=== PATIENT | male | born 1970 | race Caucasian/White ===

== ENCOUNTER 2022-12-01 10:49 | Emergency (ER) | payer SELFPAY ==
[~2022-12-01] VITALS: Ht 152.4 cm; Wt 98.4 kg
[~2022-12-01 10:49] MED LIST: AMOX500C2 PO; ASPI-892 PO; CYCL10TA9 PO; HSCO125 SL; HYDR-34 PO; HYDR-707 PO; LISI1TAB; MECL-124 PO; METH4TAB PO; NAPR-243 PO; NF-ESOM40C PO; NYST1000 PO; ONDA-42 SL; RNT150T PO; SCOP1PAT TD; TRZ50T PO
--- NOTE | 2022-12-01 11:07 | ED Upper Extremity ---
General Stated Complaint: INJ LEFT PALM Source: patient Exam Limitations: no limitations History of Present Illness Date Seen by Provider: Dec 01, 2022 Time Seen by Provider: 11:05 Initial Comments Patient is a 52-year-old male who presents ED with a laceration to his left palm. 30 minutes ago patient was working on a fan. Patient was using a knife to cut some plastic when it slipped resulting in a laceration to his left palm. Patient reports large amount of bleeding. Controlled with direct pressure. Normal range of motion of his digits. Not up-to-date on his tetanus. Reports some numbness and tingling into his left little finger. Patient denies wrist pain, blood thinners, nausea and vomiting, diarrhea fever, chills Allergies and Home Medications Allergies Coded Allergies: Codeine (Unverified Allergy, NAUSEA, 07/07/10) Patient Home Medication List Home Medication List Reviewed: Yes Amoxicillin (Amoxicillin) 500 Mg Capsule, 2 EACH PO DAILY Prescribed by: WON MORFIN on 03/09/14 2200 Aspirin (Low Dose Aspirin) 81 Mg Tablet.dr, 81 MG PO DAILY, (Reported) Entered as Reported by: CHERYLE ALBRIGHT on 07/12/09 1006 Esomeprazole Mag Trihydrate (Nexium) 40 Mg Capsule.dr, 40 MG PO BID, (Reported) Entered as Reported by: CHERYLE ALBRIGHT on 07/12/09 1006 Hydrocodone Bit/Acetaminophen (Lortab 5-500 Tablet) 1 Each Tablet, 1-2 EACH PO HS Prescribed by: GILBERT BACH on 01/01/13 1343 Hyoscyamine Sulfate (Levsin Sl) 0.125 Mg Tab, 0.125 MG SL Q4H Prescribed by: WON MORFIN on 12/28/12 0209 Lisinopril/Hydrochlorothiazide (Lisinopril-Hctz 20/12.5 Tab) 1 Each Tablet, (Reported) Entered as Reported by: PLACIDO KABA on 07/07/10 0612 Meclizine Hcl (Antivert) 25 Mg Tab, 1-2 TAB PO Q 4-6 HOURS PRN for DIZZINESS Prescribed by: MANUELA LANGSTON on 09/11/14 0120 Nystatin (Nystatin Oral Suspension) 60 Ml Btl, 5 ML PO QID Prescribed by: TEODORA BALDERAS on 03/13/14 0014 Ondansetron Hcl (Zofran Oral Dissolve) 4 Mg Tab, 4 MG SL Q4H Prescribed by: MANUELA LANGSTON on 09/11/14 012 Ranitidine Hcl (Zantac 150 Mg) 150 Mg Tablet, 1 TAB PO BID, (Reported) Entered as Reported by: PATRICIA DIALLO on 12/28/12 0051 Scopolamine Hcl (Transderm-Scop) 1 Patch .72 H Patch.td72, 1 EA TD Q3D Prescribed by: MANUELA LANGSTON on 09/11/14 012 Trazodone Hcl (Desyrel 50 Mg) 50 Mg Tab, 50 MG PO HS, (Reported) Entered as Reported by: CHERYLE ALBRIGHT on 07/12/09 1006 Review of Systems Constitutional: No chills, No diaphoresis, No fever, No malaise, No weakness EENTM: No ear pain, No blurred vision, No double vision Respiratory: No cough, No dyspnea on exertion Cardiovascular: No chest pain Gastrointestinal: No abdominal pain, No diarrhea Genitourinary: No decreased output, No discharge Musculoskeletal: No back pain, No joint pain, No joint swelling, No muscle pain, No muscle stiffness Skin: change in color All Other Systems Reviewed Negative Unless Noted: Yes Past Yvdqhra-Xdalhb-Gljrct Hx Seasonal Allergies Seasonal Allergies: No Past Medical History Abdominal, Tonsillectomy Chronic Edema/Swelling, Hypertension Reproductive Disorders: No Sexually Transmitted Disease: No Kidney Stones Abdominal Hernia, Gastroesophageal Reflux Physical Exam Vital Signs Vital Signs - First Documented 12/01/22 10:57 Temp 36.7 Pulse 104 Resp 20 B/P (MAP) 149/87 (107) O2 Delivery Room Air Capillary Refill : Height, Weight, BMI Height: 5'5" Weight: 181lbs. oz. 82.605101mx; BMI Method:Stated General Appearance: WD/WN, no apparent distress HEENT: PERRL/EOMI, normal ENT inspection, TMs normal, pharynx normal Neck: non-tender, full range of motion, supple, normal inspection Cardiovascular: regular rate, rhythm, no edema, no gallop, no JVD Respiratory: chest non-tender, lungs clear, normal breath sounds, no respiratory distress, no accessory muscle use Gastrointestinal: normal bowel sounds, non tender, soft, no organomegaly Back: normal inspection, no CVA tenderness Elbow/Forearm: normal inspection, non-tender, no evidence of injury Wrist: Yes normal inspection, Yes non-tender, Yes no evidence of injury Hand: laceration (4 cm laceration to left palmar hand. Normal active range of motion the digits. 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 Adipose involvement. No tendon vomit. Mild bleeding.) Procedures/Interventions Wound Location: Upper Extremities Other Wound Location left hand Wound Length (cm): 4 Wound's Depth, Shape: superficial, sub Q Wound Explored: clean Irrigated w/ Saline (ccs): 300 Betadine Prep?: Yes Anesthesia: 1% Lidocaine Volume Anesthetic (ccs): 8 Wound Debrided: minimal Suture: Ethlion Suture Size: 3-0 Number of Sutures: 13 Layer Closure?: 1 Progress/Results/Core Measures Results/Orders My Orders Orders - SHARON WILLIS Lidocaine 1% Inj 20 Ml (Xylocaine 1% Inj (12/01/22 11:15) Dipht,Pertuss(Acell),Tet Adult (Boostrix (12/01/22 11:15) Medications Given in ED Current Medications Medications Dose Ordered Sig/Hugo Route Start Time Stop Time Status Last Admin Dose Admin Diphtheria/ Tetanus/Acell Pertussis 0.5 ml ONCE ONCE IM 12/01/22 11:15 12/01/22 11:16 DC 12/01/22 11:30 0.5 ML Lidocaine HCl 20 ml ONCE ONCE INJ 12/01/22 11:15 12/01/22 11:16 DC 12/01/22 11:07 20 ML Vital Signs/I&O 12/01/22 10:57 Temp 36.7 Pulse 104 Resp 20 B/P (MAP) 149/87 (107) O2 Delivery Room Air Departure Communication (PCP) Reviewed previous ER visits, H&P, lab testing. Denies diabetes or blood thinners. Differential diagnoses hand laceration, muscular or tendon laceration. Patient with a 4 cm laceration to the left later palm. Normal active range of motion of the digits. Adipose involvement no evidence of tendon or muscular involvement. Extensive irrigation. Placed 13 Ethilon 3-0 sutures to the left hand. patient tolerated procedure well. Remove in 10 to 12 days. Discussed wound care. Keep the hand bandage in a Lele wrap. Provided hand surgery follow-up for further evaluation in the next 1 week. Avoid movement to allow healing and to prevent the sutures from rupturing. if increased redness or swelling to return back to ED. patient does not need antibiotics prophylactically. Updated his tetanus. Impression Primary Impression: Hand laceration Disposition: HOME, SELF-CARE Condition: Stable Departure-Patient Inst. Decision time for Depature: 12:05 Referrals: [facility] (PCP/Family) Primary Care Physician Patient Instructions: Laceration Repair With Stitches ED Add. Discharge Instructions: Recommend following up [place] [phone]. Keep the area covered with gauze and Lele wrap. Remove sutures in 10 to 12 days. Avoid excessive movement of the left hand SHARON WILLIS Dec 01, 2022 11:07
[2022-12-01] MEDS ORDERED: TETANUS,DIPTH,PERTUSS P/F (BOOSTRIX) 0.5 ML VIAL IM ONE (11:15)
[2022-12-01] MEDS ORDERED: LIDOCAINE 1% INJ 20 ML VIAL INJ ONE (11:15)
[2022-12-01 12:13] VITALS: BP 139/86
== END 2022-12-01 12:13 | disposition home or self-care (01) ==
LOC: EDUNIT# 10:49 → ER 10:52
DX: S61.412A Laceration without foreign body of left hand, initial encounter (principal); Z23 Encounter for immunization; Z28.310 Unvaccinated for COVID-19; W26.0XXA Contact with knife, initial encounter
CPT/HCPCS: 90715; 99284

== ENCOUNTER 2022-12-13 06:37 | Emergency (ER) | payer SELFPAY ==
[2022-12-13 06:56] VITALS: BP 145/95
--- NOTE | 2022-12-13 06:59 | ED Integumentary General ---
General Chief Complaint: Skin/Wound Problems Stated Complaint: STITCHES REMOVED Source: patient Exam Limitations: no limitations History of Present Illness Date Seen by Provider: Dec 13, 2022 Time Seen by Provider: 06:48 Initial Comments 52-year-old male presents for left hand suture removal. Sutures placed on the second of this month. He had a small area opened up to the medial aspect of the wound. No drainage. No fevers or chills. No redness. All other systems reviewed and negative except documented per HPI. Voice recognition software was used to help create this chart Allergies and Home Medications Allergies Coded Allergies: codeine (Unverified Allergy, Unknown, NAUSEA, 12/01/22) Patient Home Medication List Home Medication List Reviewed: Yes Amoxicillin (Amoxicillin) 500 Mg Capsule, 2 EACH PO DAILY Prescribed by: WON MORFIN on 03/09/14 2200 Aspirin (Low Dose Aspirin) 81 Mg Tablet.dr, 81 MG PO DAILY, (Reported) Entered as Reported by: CHERYLE ALBRIGHT on 07/12/09 1006 Esomeprazole Mag Trihydrate (Nexium) 40 Mg Capsule.dr, 40 MG PO BID, (Reported) Entered as Reported by: CHERYLE ALBRIGHT on 07/12/09 1006 Hydrocodone Bit/Acetaminophen (Lortab 5-500 Tablet) 1 Each Tablet, 1-2 EACH PO HS Prescribed by: GILBERT BACH on 01/01/13 1343 Hyoscyamine Sulfate (Levsin Sl) 0.125 Mg Tab, 0.125 MG SL Q4H Prescribed by: WON MORFIN on 12/28/12 0209 Lisinopril/Hydrochlorothiazide (Lisinopril-Hctz 20/12.5 Tab) 1 Each Tablet, (Reported) Entered as Reported by: PLACIDO KABA on 07/07/10 0612 Meclizine Hcl (Antivert) 25 Mg Tab, 1-2 TAB PO Q 4-6 HOURS PRN for DIZZINESS Prescribed by: MANUELA LANGSTON on 09/11/14 0120 Nystatin (Nystatin Oral Suspension) 60 Ml Btl, 5 ML PO QID Prescribed by: TEODORA BALDERAS on 03/13/14 0014 Ondansetron Hcl (Zofran Oral Dissolve) 4 Mg Tab, 4 MG SL Q4H Prescribed by: MANUELA LANGSTON on 09/11/14 0120 Ranitidine Hcl (Zantac 150 Mg) 150 Mg Tablet, 1 TAB PO BID, (Reported) Entered as Reported by: PATRICIA DIALLO on 12/28/12 0051 Scopolamine Hcl (Transderm-Scop) 1 Patch .72 H Patch.td72, 1 EA TD Q3D Prescribed by: MANUELA LANGSTON on 09/11/14 0120 Trazodone Hcl (Desyrel 50 Mg) 50 Mg Tab, 50 MG PO HS, (Reported) Entered as Reported by: CHERYLE ALBRIGHT on 07/12/09 1006 Review of Systems Review of Systems Constitutional: see HPI Past Izaqrjo-Knewvx-Lpzynk Hx Patient Social History Tobacco Use?: No Use of E-Cig and/or Vaping dev: No Substance use?: No Alcohol Use?: No Seasonal Allergies Seasonal Allergies: No Past Medical History Abdominal, Tonsillectomy Chronic Edema/Swelling, Hypertension Reproductive Disorders: No Sexually Transmitted Disease: No Kidney Stones Abdominal Hernia, Gastroesophageal Reflux Physical Exam Vital Signs Capillary Refill : General Appearance: WD/WN, no apparent distress Skin: other (Sutures in left palmar crease revealing well. There is a small area that is within the crease that has split. This is separate from the initial suture line or laceration. It is less than 1 cm. There is no drainage.) Procedures/Interventions Suture Size: 3-0 Departure Communication (Admissions) Patient is hemodynamically stable. Appears his skin has gotten dry and cracked perpendicular to the initial laceration. There is a very small area. The laceration itself is healing well however is not completely healed at this time. Is likely delayed due to being in the crease of the palm with frequent movement. We will go ahead and leave the stitches in for another week. Advised to follow-up with the [facility] clinic for further evaluation as he says he cannot afford to follow-up with the hand specialist as previously recommended. I do not think there is any need for hand specialty at this point. He has no obvious this or tenderness involvement. He does endorse some continued numbness in his left little finger but the sensation in his ring finger and middle finger have returned to normal. Advised him that he may have completely lost sensation in his little finger forever or it may come back to some extent but it is not predi ctable at this time, take time to tell. He states understanding. He is discharged in stable condition. Impression Primary Impression: Visit for suture removal Disposition: 01 HOME, SELF-CARE Condition: Stable Departure-Patient Inst. Referrals: [facility] (PCP/Family) Primary Care Physician Patient Instructions: Wound Care (DC) Add. Discharge Instructions: Keep the stitches in for another week. Follow-up with the [facility] clinic in 3 to 4 days for recheck of the wound. Return to the emergency department for any drainage looks like pus or any other severe concerns. All discharge instructions reviewed with patient and/or family. Voiced understanding. MECHELLE TEMPLE DO Dec 13, 2022 06:59
== END 2022-12-13 07:01 | disposition home or self-care (01) ==
LOC: EDUNIT# 06:37 → ER 06:40
DX: S61.412D Laceration without foreign body of left hand, subsequent encounter (principal); X58.XXXD Exposure to other specified factors, subsequent encounter
CPT/HCPCS: 99281